=== PATIENT | male | born 2000 | race Caucasian/White ===

== ENCOUNTER → 2024-04-02 16:35 | Outpatient (CLI) | payer SELFPAY | PROVIDERS: PCP Physician Assistant Medical; Visit Provider Physician Assistant Medical | DX: R30.0 Dysuria (principal); R10.31 Right lower quadrant pain | CPT/HCPCS: 87086 ==

== ENCOUNTER → 2024-04-03 15:43 | Outpatient (CLI) | payer SELFPAY ==
[2024-04-03 20:30] LABS: Urine N gonorrhoeae NOT DETECTED
[2024-04-03 20:36] LABS: Urine Chlamydia DETECTED
== END ==
PROVIDERS: PCP Physician Assistant Medical; Visit Provider Physician Assistant Medical
DX: R30.0 Dysuria (principal); R10.31 Right lower quadrant pain
CPT/HCPCS: 87491; 87591

== ENCOUNTER → 2024-05-25 10:38 | Outpatient (CLI) | payer SELFPAY ==
[2024-05-25 22:22] LABS: Urine N gonorrhoeae NOT DETECTED
[2024-05-25 22:29] LABS: Urine Chlamydia NOT DETECTED
== END ==
PROVIDERS: PCP Physician Assistant Medical; Visit Provider Physician Assistant
DX: N50.819 Testicular pain, unspecified (principal); Z86.19 Personal history of other infectious and parasitic diseases
CPT/HCPCS: 87491; 87591

== ENCOUNTER → 2024-05-26 14:10 | Outpatient (CLI) | payer SELFPAY ==
[2024-05-26 19:05] LABS: Appearance Urine UA CLEAR; Bilirubin Urine UA NEGATIVE (NEGATIVE); Color Urine UA YELLOW; Glucose Urine UA NEGATIVE (Negative); Ketones Urine UA NEGATIVE (NEGATIVE); Leukocyte Esterase Urine UA NEGATIVE (NEGATIVE); Nitrite Urine UA NEGATIVE (Negative); Occult Blood Urine UA NEGATIVE (Negative); Protein Urine UA NEGATIVE (Negative); Specific Gravity Urine UA <=1.005 (1.000-1.035); Urobilinogen Urine UA 0.2 E.U./dL (0.2); pH Urine UA 6.5 (4.5-8.0)
[2024-05-26 19:46] LABS: Bacteria Urine None Seen; RBC Urine None Seen (0-5/HPF); Squamous Epithelial Cell Urine None Seen (0-5/HPF); Urine Volume 10mL (spun); WBC Urine None Seen (0-5/HPF)
== END ==
PROVIDERS: PCP Physician Assistant Medical; Visit Provider Physician Assistant
DX: N50.819 Testicular pain, unspecified (principal)
CPT/HCPCS: 81001

== ENCOUNTER → 2024-06-02 11:58 | Outpatient (CLI) | payer SELFPAY ==
--- NOTE | 2024-06-02 12:08 | DI.US.S_ITS ---
PROCEDURE: US SCROTUM INDICATIONS: BILATERAL TESTICULAR PAIN TECHNIQUE: Real-time scanning was performed of the scrotum and testicles, with image documentation. Color and pulse Doppler interrogation was performed of both testicles. COMPARISON: None. FINDINGS: Right: Testicle is normal in size at 4.2 x 2.9 x 2.1 cm, and homogenous in echotexture. Epididymis is normal in overall size and morphology. No hydrocele or varicoceles. Left: Testicle is normal in size at 4.3 x 3.1 x 1.7 cm, and homogeneous in echotexture. Epididymis is normal in overall size and demonstrates a 2 mm epididymal head cyst. No hydrocele or varicoceles. Doppler: There is moderate eroded lead increased vascularity seen involving the epididymis on both sides. Minimally increased vascularity is also seen involving the scrotal wall on both sides. Color and pulse Doppler demonstrate mildly to moderately increased vascular flow within both testicles. IMPRESSION: These imaging findings are most compatible with epididymo-orchitis, with generalized increased vascularity on both sides, particularly involving the epididymis, yet also involved sending the testicles and (mildly) the scrotal wall. Dictated by: Sammy Mahoney M.D. on 06/02/2024 at 12:59 Approved by: Sammy Mahoney M.D. on 06/02/2024 at 13:02
== END ==
LOC: US 12:07
PROVIDERS: PCP Physician Assistant Medical; Referring Provider Physician Assistant; Visit Provider Physician Assistant
DX: N50.811 Right testicular pain (principal); N50.812 Left testicular pain
CPT/HCPCS: 76870; 93975

== ENCOUNTER → 2024-06-03 15:25 | Outpatient (CLI) | payer SELFPAY ==
[2024-06-03 21:28] LABS: Urine N gonorrhoeae NOT DETECTED
[2024-06-03 21:33] LABS: Urine Chlamydia NOT DETECTED
== END ==
PROVIDERS: PCP Physician Assistant Medical; Visit Provider Physician Assistant Medical
DX: N45.3 Epididymo-orchitis (principal); Z86.19 Personal history of other infectious and parasitic diseases
CPT/HCPCS: 87491; 87591

== ENCOUNTER 2024-09-10 18:28 | Emergency (ER) | payer BC, SELFPAY ==
[2024-09-10 18:48] VITALS: BP 135/88; PULSE 88; RESP 12; TEMP 36.8; O2SAT 98; BMI 20.3
== END 2024-09-10 20:20 | disposition left against medical advice (07) ==
PROVIDERS: Emergency Provider Emergency Medicine; PCP Physician Assistant Medical
CPT/HCPCS: 99281

== ENCOUNTER 2024-09-11 10:43 | Emergency (ER) | payer BC, SELFPAY ==
[2024-09-11 10:56] VITALS: BP 156/74; PULSE 90; RESP 15; TEMP 37.4; O2SAT 98; BMI 20.3
--- NOTE | 2024-09-11 11:24 | ED_ITS ---
<Statement entered by David Gonzales DO - 09/11/24 17:26> Dr. Gonzales: I was immediately available in the department for consultation. I did not actually see the patient. HPI - Male Genitourinary General Chief complaint: Urogenital-Male Stated complaint: Coming back today from Yesterdays visit Time Seen by Provider: 09/11/24 11:00 Mode of arrival: Ambulatory History of Present Illness HPI Narrative: Mr. Villegas is a pleasant 24-year-old male with a past medical history of chlamydia March 2024 resulting in orchitis epididymitis who presents to the emergency department for bilateral flank pain x 5 days. Patient is with his father. Reports that around Saturday he developed bilateral flank pain throughout the day with no known injury or trigger. States that the pain is directly over both of his kidneys which is what concerned him giving his history of testicular pain. Pain is slightly worse on the right side of his flank with occasional wrapping around to the right groin. Pain is constant, not intermittent. Pain is a 5 to 7/10. He denies any urinary symptoms at this time and states that his testicular pain has gotten much better. Denies hematuria, dysuria, itching, burning. Denies abdominal pain, nausea, vomiting, fevers, chills, chest pain, shortness of breath, cough, sore throat, flu symptoms, testicular pain, testicular swelling, penile discharge. Pain is improved only slightly with ibuprofen. Pain is worsened by movement. He lives on [facility]. Related Data Home Medications Medication Instructions Recorded Confirmed No Known Home Medications 06/30/24 07/02/24 Allergies Allergy/AdvReac Type Severity Reaction Status Date / Time No Known Drug Allergies Allergy Verified 07/02/24 11:57 Review of Systems Review of Systems ROS Unobtainable: All systems reviewed & are unremarkable except as noted in HPI and below Patient History Social History Smoking Status: Never smoker Smoking Status: Never smoker Alcohol type: beer Exam Narrative Exam Narrative: GENERAL: 24 year old patient appears stated age. Well-developed patient, in no acute distress. HEAD: Atraumatic. Normocephalic. NECK: Trachea midline. Cervical ROM intact. CARDIOVASCULAR: Regular rate and rhythm. RESPIRATORY: ?Nonlabored respirations. ?Speaking in clear, full sentences. ?Clear to auscultation. Breath sounds equal bilaterally. No wheezes, rales, or rhonchi. ? GASTROINTESTINAL: Abdomen soft, non-tender, nondistended. Normal bowel sounds. EXTREMITIES: No edema or joint tenderness. BACK: Subjective pain in the mid back region over the bilateral thoracic paraspinal muscles. No CVA tenderness. Reports that right-sided pain radiates slightly to the groin. NEURO: AOx3. ?Clear speech. ?Moves all 4 extremities appropriately. SKIN: No rash or erythema of visible areas Initial Vital Signs Initial Vital Signs: Vital Signs Temperature 99.4 F 09/11/24 10:56 Pulse Rate 90 09/11/24 10:56 Respiratory Rate 15 09/11/24 10:56 Blood Pressure 156/74 H 09/11/24 10:56 Pulse Oximetry 98 09/11/24 10:56 Oxygen Delivery Method Room Air 09/11/24 10:56 Course Orders Ordered: ED Orders 09/11/24 10:53 Chlamydia Gonorrhea PCR -URINE Stat Urine Microscopic Stat 09/11/24 11:23 US renal complete Stat Complete Blood Count AUTO DIFF Stat Comprehensive Metabolic Panel Stat Lipase Stat Discontinued Medications Ketorolac Tromethamine (Ketorolac 30 Mg/Ml Vial) 15 mg IV NOW ONE Stop: 09/11/24 11:24 Last Admin: 09/11/24 12:04 Dose: 15 mg Documented By: RB Vital Signs Vital signs: Vital Signs - 8 hr 09/11/24 10:56 Temperature 99.4 F Pulse Rate 90 Respiratory Rate 15 Blood Pressure 156/74 H Pulse Oximetry 98 Oxygen Delivery Method Room Air MDM - Male Genitourinary Medical Records Attestation: I reviewed the patient's medical records. Lab Data 09/11/24 12:00 09/11/24 12:00 Labs: Lab Results 09/11/24 09/11/24 Range/Units 10:53 12:00 WBC 7.5 (4.5-11.0) X10^3/uL RBC 4.67 (4.5-5.9) X10^6/uL Hgb 15.0 (13.5-17.5) g/dL Hct 44.5 (41-53) % MCV 95.2 (80-100) fL MCH 32.0 (26-34) PG MCHC 33.6 (30-36) % RDW 13.0 (11.6-14.8) % Plt Count 279 (150-400) X10^3/uL Neut % (Auto) 58.4 (50-75) % Lymph % (Auto) 28.5 (25-40) % Bartholomew % (Auto) 11.8 (3-14) % Eos % (Auto) 0.4 L (2-4) % Baso % (Auto) 0.9 (0-2) % Neut # (Auto) 4400 (4785-1803) /uL Lymph # (Auto) 2200 (0803-0239) /uL Bartholomew # (Auto) 900 (0-900) /uL Eos # (Auto) 0 (0-450) /uL Baso # (Auto) 100 (0-100) /uL Sodium 140 (137-145) mmol/L Potassium 3.9 (3.4-5.1) mmol/L Chloride 106 (98-107) mmol/L Carbon Dioxide 25 (22-32) mmol/L BUN 7 L (9-20) mg/dL Creatinine 0.80 (0.66-1.25) mg/dL Estimated GFR > 60 (>60) mL/min BUN/Creatinine Ratio 8.8 (6-22) Glucose 100 (70-100) mg/dL Calcium 9.7 (8.4-10.2) mg/dL Total Bilirubin 0.5 (0.2-1.3) mg/dL AST 31 (17-59) IU/L ALT 27 (<50) IU/L Alkaline Phosphatase 57 (38-126) U/L Total Protein 8.5 H (6.3-8.2) g/dL Albumin 5.1 H (3.5-5.0) g/dL Globulin 3.4 (1.7-4.1) g/dL Albumin/Globulin Ratio 1.5 (1.0-2.8) Lipase 60 (23-300) U/L Urine RBC None seen (0-5/HPF) Urine WBC None seen (0-5/HPF) Ur Squamous Epith Cells None seen (0-5/HPF) Urine Bacteria None seen (None) Ur Culture Indicated? Cult not indicated Vol Urine Centrifuged 10ml (spun) Ur Chlamydia DNA (PCR) Not detected N gonorrhoeae DNA (PCR) Not detected Urine Dip Bedside Urine Glucose Negative Bedside Urine Bilirubin - Negative Bedside Urine Ketone - Negative Urine Specific [place] 1.005 Bedside Urine Occult Blood - Negative Bedside Urine pH 7.0 Bedside Urine Protein - Negative Bedside Urine Urobilinogen - Negative Bedside Urine Nitrite - Negative Bedside Urine Leukocytes - Negative Esterase Imaging Data Renal US: Radiologist's Impression: PROCEDURE: US RENAL COMPLETE INDICATIONS: BL flank pain; R radiating to groin TECHNIQUE: Real-time scanning was performed of the kidneys and bladder, with image documentation. COMPARISON: None. FINDINGS: Kidneys: Kidneys are normal in size. Right kidney measures 11.2 cm long; left kidney measures 10.5 cm long. Right renal cortical thickness is 1.3 cm; left renal cortical thickness is 1.2 cm. Renal cortical echotexture is normal. No hydronephrosis or nephrolithiasis. No suspicious solid mass lesions. Bladder: Pre-void bladder volume is 63 mL. Post-void residual is 16 mL. Pre- void images demonstrate no intraluminal masses or stones. On pre-void images, unilateral right ureteral jets are noted with color Doppler interrogation. (Of note, ureteral jets may not be detectable in up to 25% of cases due to insufficient differences in specific gravity between ureteral and bladder urine). Miscellaneous: No free pelvic fluid. IMPRESSION: No hydronephrosis or nephrolithiasis. MDM Narrative Medical decision making narrative: 24-year-old male with a past medical history of chlamydia March 2024 resulting in orchitis epididymitis who presents to the emergency department for bilateral flank pain x 5 days. Differential diagnosis includes but is not limited to paraspinal muscle strain, UTI, pyelonephritis, hydronephrosis, ureterolithiasis, nephrolithiasis, etc. On exam patient is in no acute distress, nontoxic appearing, vital signs appropriate. Physical exam is overall reassuring with mild subjective pain in the bilateral midthoracic paraspinal region but no true CVA tenderness or abdominal tenderness. After shared decision-making with the patient, we will check urinalysis, gonorrhea/Chlamydia, CBC, CMP, lipase, renal ultrasound to further evaluate for potential renal abnormality however low suspicion for stone at this time and would like to avoid CT radiation. Pain improved with Toradol. Ultrasound reveals no hydronephrosis or nephrolithiasis. Prevoid bladder volume was 63 mL, postvoid residual is 16 mL. Urinalysis negative for blood or infection. Gonorrhea/chlamydia urine test is negative. Labs reveal normal WBC count 7.5, hemoglobin 15.0 hematocrit 44.5. Sodium normal 140, potassium 3.9, BUN 7, creatinine 0.80 with a GFR greater than 60. Very slight elevation of total protein 8.5 and Albumin 5.1. At this time, most suspicious that pain may be musculoskeletal as patient has no signs of urinary tract infection, hydronephrosis or obstruction. Did discuss extensive ED return precautions with the patient and his father and recommended prompt follow up with the PCP. Patient and his father verbalized understanding of all information. Advised ibuprofen/Tylenol, rest, avoid heavy lifting. He is stable for discharge home at this time. Discharge Plan Departure Patient Disposition: Home Clinical Impression: Bilateral flank pain Instructions: DI for Flank Pain Activity Restrictions/Additional Instructions: Dear Mr. Villegas, Thank you for coming to the emergency department today. Today, we completed a work up for flank pain on both sides of your back. Sometimes, we do not always find the cause for your symptoms in one ER visit. The findings on your exam today and on your blood work and/or imaging is reassuring. Your lab work revealed no signs of systemic infection, normal kidney function, and your urine test was negative for any signs of infection or gonorrhea/chlamydia. At this time, it is not 100% certain what is causing your symptoms, but we feel you can be discharged from the emergency department. It is possible this may worsen or you may get better. Please, if you get worse or your symptoms change, return to the emergency department. Please take Ibuprofen (Motrin/Advil) or Acetaminophen (Tylenol) for pain. These are available over the counter. You may take Ibuprofen 600 mg every 8 hours with food for pain. You may also take Acetaminophen 650 mg every 4-6 hours for pain. Do not exceed 3000 mg of Tylenol a day as this can cause liver damage. Do not drink alcohol with either of these medications. Please rest, avoid heavy lifting. Please follow up with your primary care doctor within the next 2-3 days for ER follow-up. (If you do not have a PCP you can call [phone]. ?to schedule an appointment with an [facility] Primary Care Provider) IF YOU DEVELOP ANY NEW OR WORSENING SYMPTOMS, RETURN TO THE ER! Please read the attached instructions, they highlight more specific treatments and interventions for you at home. Thank you for letting me participate in your care, Elvia John PA-C Prescriptions: No Action No Known Home Medications Referrals: Loly Aguiar PA-C [Primary Care Provider] - Stand Alone Forms: Patient Portal/API/Survey
[2024-09-11 11:37] LABS: Urine Volume 10mL (spun)
[2024-09-11 11:38] LABS: Bacteria Urine None Seen; Culture Indicated Urine Cult Not Indicated; RBC Urine None Seen (0-5/HPF); Squamous Epithelial Cell Urine None Seen (0-5/HPF); WBC Urine None Seen (0-5/HPF)
[2024-09-11] MEDS: KETOROLAC 30 MG/ML VIAL 15 MG IV (12:04)
[2024-09-11 12:14] LABS: Add Manual Diff / Slide Review NO; Basophils Absolute Auto 100 /uL (0-100); Basophils Percent Auto 0.9 % (0-2); Eosinophils Absolute Auto 0 /uL (0-450); Eosinophils Percent Auto 0.4 % (2-4); Hematocrit 44.5 % (41-53); Lymphocytes Absolute Auto 2200 /uL (1100-4500); Lymphocytes Percent Auto 28.5 % (25-40); Mean Corpuscular HGB Conc 33.6 % (30-36); Mean Corpuscular Volume 95.2 fL (80-100); Monocytes Absolute Auto 900 /uL (0-900); Monocytes Percent Auto 11.8 % (3-14); Neutrophils Absolute Auto 4400 /uL (1500-7000); Neutrophils Percent Auto 58.4 % (50-75); Platelet Count 279 X10^3/uL (150-400); Red Blood Cell Count 4.67 X10^6/uL (4.5-5.9); White Blood Cell Count 7.5 X10^3/uL (4.5-11.0)
[2024-09-11 12:28] LABS: Alanine Aminotransferase 27 IU/L (<50); Alkaline Phosphatase 57 U/L (38-126); Aspartate Aminotransferase 31 IU/L (17-59); BUN Creatinine Ratio 8.8 (6-22); Bilirubin Total 0.5 mg/dL (0.2-1.3); Blood Urea Nitrogen 7 mg/dL (9-20); Calcium 9.7 mg/dL (8.4-10.2); Chloride 106 mmol/L (98-107); Estimated Glomerular Filt Rate > 60 mL/min (>60); Glucose 100 mg/dL (70-100); HEMOLYSIS < 15 (0-50); Lipase 60 U/L (23-300); Potassium 3.9 mmol/L (3.4-5.1); Sodium 140 mmol/L (137-145)
[2024-09-11 12:29] LABS: Total Protein 8.5 g/dL (6.3-8.2)
[2024-09-11 12:30] LABS: Albumin 5.1 g/dL (3.5-5.0); Albumin Globulin Ratio 1.5 (1.0-2.8); Carbon Dioxide 25 mmol/L (22-32); Globulin 3.4 g/dL (1.7-4.1)
[2024-09-11 13:03] LABS: Urine N gonorrhoeae NOT DETECTED
[2024-09-11 13:05] LABS: Urine Chlamydia NOT DETECTED
[2024-09-11 13:34] VITALS: BP 130/80; PULSE 79; RESP 14; O2SAT 98
== END 2024-09-11 13:42 | disposition home or self-care (01) ==
PROVIDERS: Emergency Provider Physician Assistant; PCP Physician Assistant Medical
DX: R10.9 Unspecified abdominal pain (principal); Z86.19 Personal history of other infectious and parasitic diseases
CPT/HCPCS: 36415; 76770; 80053; 81003; 81015; 83690; 85025; 87491; 87591; 96374; 99284; J1885

== ENCOUNTER → 2024-11-06 08:45 | Outpatient (CLI) | payer BC, SELFPAY ==
[2024-11-06 19:40] LABS: Add Manual Diff / Slide Review NO; Basophils Absolute Auto 0 /uL (0-100); Basophils Percent Auto 0.8 % (0-2); Eosinophils Absolute Auto 100 /uL (0-450); Eosinophils Percent Auto 2.3 % (2-4); Hematocrit 45.7 % (41-53); Hemoglobin 15.4 g/dL (13.5-17.5); Lymphocytes Absolute Auto 2600 /uL (1100-4500); Lymphocytes Percent Auto 41.8 % (25-40); Mean Corpuscular HGB Conc 33.8 % (30-36); Mean Corpuscular Hemoglobin 32.2 PG (26-34); Mean Corpuscular Volume 95.4 fL (80-100); Monocytes Absolute Auto 700 /uL (0-900); Neutrophils Absolute Auto 2700 /uL (1500-7000); Neutrophils Percent Auto 43.1 % (50-75); Platelet Count 219 X10^3/uL (150-400); Red Blood Cell Count 4.79 X10^6/uL (4.5-5.9); Red Cell Distribution Width 13.5 % (11.6-14.8); White Blood Cell Count 6.2 X10^3/uL (4.5-11.0)
[2024-11-06 19:46] LABS: Erythrocyte Sedimentation Rate 1 MM/HR (0-15)
[2024-11-06 19:51] LABS: Alanine Aminotransferase 29 IU/L (<50); Albumin 5.4 g/dL (3.5-5.0); Albumin Globulin Ratio 1.7 (1.0-2.8); Alkaline Phosphatase 61 U/L (38-126); Aspartate Aminotransferase 37 IU/L (17-59); BUN Creatinine Ratio 10.3 (6-22); Bilirubin Total 1.1 mg/dL (0.2-1.3); Blood Urea Nitrogen 9 mg/dL (9-20); C-Reactive Protein Quant < 0.5 mg/dL (<1.0); Calcium 10.5 mg/dL (8.4-10.2); Carbon Dioxide 21 mmol/L (22-32); Chloride 105 mmol/L (98-107); Cholesterol 233 mg/dL (140-199); Estimated Glomerular Filt Rate > 60 mL/min (>60); Globulin 3.2 g/dL (1.7-4.1); Glucose 100 mg/dL (70-100); HDL Cholesterol 83 mg/dL (40-60); HEMOLYSIS 25 (0-50); LDL Cholesterol Calculated 126 mg/dL (<100); Potassium 4.3 mmol/L (3.4-5.1); Sodium 139 mmol/L (137-145); Total Protein 8.6 g/dL (6.3-8.2); Triglycerides 120 mg/dL (35-150)
[2024-11-06 20:18] LABS: TSH w/ Reflex to FT4 2.99 uIU/mL (0.47-4.68)
== END ==
PROVIDERS: PCP Physician Assistant Medical; Visit Provider Physician Assistant Medical
DX: R07.9 Chest pain, unspecified (principal)
CPT/HCPCS: 80053; 80061; 84443; 85025; 85651; 86140

== ENCOUNTER → 2024-11-17 15:23 | Outpatient (CLI) | payer BC, SELFPAY ==
--- NOTE | 2024-11-18 07:52 | DI.NM.S_ITS ---
DATE OF SERVICE: 11/17/2024 EXERCISE TREADMILL STRESS TEST REPORT PROCEDURE: Exercise treadmill stress test without imaging. ORDERING PROVIDER: Loly Aguiar PA-C INDICATIONS: The patient is a 24-year-old male with recent atypical, stabbing chest discomfort and lightheadedness. FINDINGS: 1. The patient was able to exercise for 11 minutes 26 seconds on a standard [place] protocol suggesting moderately reduced exercise capacity with an KYLER of +24%, achieving 12.1 METs. 2. His resting heart rate was 109 bpm with an appropriate increase to 191 bpm (97% of his predicted maximum). His resting blood pressure was 126/102 with an appropriate increase to 173/100. 3. He had no chest discomfort or other anginal symptoms. 4. His resting ECG shows sinus rhythm at 98 to [address] segments. There are no significant ST-segment shifts or arrhythmias with stress. IMPRESSION: 1. Normal exercise treadmill stress test for ischemia. 2. Moderately reduced exercise capacity without angina. 3. Borderline resting sinus tachycardia and diastolic hypertension, but an appropriate heart rate and blood pressure response to exercise. 4. No arrhythmias. Ron Villegas - RS/fn/DC doc#: [id number]/job#: [id number] dd: 11/17/2024 17:39:00 dt: 11/17/2024 17:55:00 DICTATING /COPIES TO: João Mena MD; Loly Aguiar PA-C COPIES MNE: VALENTE;
== END ==
PROVIDERS: PCP Physician Assistant Medical; Referring Provider Physician Assistant Medical; Visit Provider Physician Assistant Medical
DX: R42 Dizziness and giddiness (principal); R07.89 Other chest pain
CPT/HCPCS: 93017

== ENCOUNTER → 2024-11-25 15:00 | Outpatient (CLI) | payer BC, SELFPAY ==
--- NOTE | 2024-11-25 15:01 | DI.ECHO.S_ITS ---
[facility]+ [facility] : : [address] : : [place] : : [id number] : : Phone: [phone] Echocardiogram Report + + :Name: SPIKE VEGA Study Date: 11/25/2024 Height: 72 in : :Hospital ReadingLocation: Weight: 150 lb : : Gender: Male BSA: 1.9 m2 : :: 2000 Age: 24 yrs BP: 144/91 mmHg: :Reason For Study: CHEST PAIN : :Ordering Physician: SHEREEN, : :ANGELICA Performed By: Sheldon Hoyt : :Referring: ANGELICA REGAN : + + Interpretation Summary The ejection fraction is estimated to be 50-55%. Diastolic parameters suggest probable normal left ventricular diastolic function and normal filling pressures. No valvular abnormalities. Pulmonary artery pressures cannot be estimated because of the lack of a measurable TR jet velocity but the IVC suggests a CVP of around 3 mmHg. Procedure: A two-dimensional transthoracic echocardiogram with color flow and Doppler was performed. The study quality was technically adequate. There is no prior echocardiogram noted for this patient. The patient was in normal sinus rhythm during the exam. Left Ventricle: The left ventricle is normal in size. There is normal left ventricular wall thickness. There is no ventricular septal defect visualized. The ejection fraction is estimated to be 50-55%. There are no focal wall motion abnormalities. Diastolic parameters suggest probable normal left ventricular diastolic function and normal filling pressures. Right Ventricle: The right ventricle is normal in size and function. Atria: The left atrial size is normal. Right atrial size is normal. There is no Doppler evidence for an interatrial shunt. Mitral Valve: The mitral valve leaflets appear normal. There is no evidence of stenosis, fluttering, or prolapse. There is no mitral regurgitation noted. Aortic Valve: The aortic valve is trileaflet. The aortic valve opens well. There is no aortic valve stenosis. No aortic regurgitation is present. Tricuspid Valve: The tricuspid valve leaflets are thin and pliable. No tricuspid regurgitation. Pulmonary artery pressures cannot be estimated because of the lack of a measurable TR jet velocity but the IVC suggests a CVP of around 3 mmHg. Pulmonic Valve: The pulmonic valve leaflets are thin and pliable; valve motion is normal. There is trace pulmonic regurgitation. Great Vessels: The aortic root is normal size. The dimensions of the ascending aorta are normal. The pulmonary artery is normal size. The IVC is of normal diameter and collapses greater than 50% with a sniff. This suggests a low right atrial pressure of 3 mm Hg. Pericardium/ Pleura There is no pericardial effusion. There is no pleural effusion. MMode/2D Measurements & Calculations LVIDd: 5.0 cm LVOT diam: 2.2 cm LVIDs: 3.8 cm Ao root diam: 3.1 cm FS: 23.8 % EPSS: 0.71 cm IVSd: 0.94 cm LVPWd: 0.84 cm LV love. diameter/BSA (cm/m^2): 2.7 LV sys. diameter/BSA (cm/m^2): 2.0 LA A2 area: 13.6 cm2 RA long axis: 3.5 cm LA A4 area: 15.6 cm2 RA area: 8.6 cm2 LA length (vol): 4.5 cm RA vol: 18.1 ml LA vol: 39.8 ml RA : 9.6 ml/m2 LA vol index: 21.1 ml/m2 IVC diam: 1.6 cm RVD1 (basal): 4.3 cm RVD2 (mid): 3.5 cm TAPSE: 1.8 cm Doppler Measurements & Calculations Ao V2 max: 109.3 cm/sec LVOT Max Philipp: 87.4 cm/sec Ao V2 mean: 81.1 cm/sec LV V1 max P.1 mmHg Ao max P.8 mmHg LV V1 VTI: 15.5 cm Ao mean P.9 mmHg GARRETT(I,D): 3.0 cm2 Ao V2 VTI: 19.4 cm GARRETT(V,D): 3.0 cm2 sev ratio: 0.80 GARRETT indexed to BSA (cm^2/m^2): 1.6 MV E max philipp: 59.6 cm/sec PA V2 max: 88.7 cm/sec MV A max philipp: 39.8 cm/sec PA V2 mean: 65.3 cm/sec MV E/A: 1.5 PA mean P.9 mmHg Med Peak E' Philipp: 13.4 cm/sec PA pr(Accel): 13.9 mmHg E/E' med: 4.5 Lat Peak E' Philipp: 11.0 cm/sec E/E' lat: 5.4 E/e' average: 4.9 MV dec time: 0.17 sec SV(LVOT): 58.1 ml Reading Physician:04:48 PM
== END ==
PROVIDERS: PCP Physician Assistant Medical; Referring Provider Physician Assistant Medical; Visit Provider Physician Assistant Medical
DX: R07.9 Chest pain, unspecified (principal); R42 Dizziness and giddiness
CPT/HCPCS: 93306

== ENCOUNTER → 2025-01-26 15:15 | Outpatient (CLI) | payer BC, SELFPAY ==
[2025-01-26 21:22] LABS: Urine N gonorrhoeae NOT DETECTED
[2025-01-26 21:36] LABS: Urine Chlamydia NOT DETECTED
== END ==
LOC: LAB 15:27
PROVIDERS: PCP Physician Assistant Medical; Visit Provider Physician Assistant Medical
DX: Z20.2 Contact with and (suspected) exposure to infections with a predominantly sexual mode of transmission (principal)
CPT/HCPCS: 87491; 87591

== ENCOUNTER → 2025-02-02 13:06 | Outpatient (CLI) | payer BC, SELFPAY ==
[2025-02-02 19:27] LABS: Alanine Aminotransferase 25 IU/L (<50); Albumin 4.9 g/dL (3.5-5.0); Albumin Globulin Ratio 1.6 (1.0-2.8); Alkaline Phosphatase 55 U/L (38-126); Aspartate Aminotransferase 35 IU/L (17-59); BUN Creatinine Ratio 15.1 (6-22); Blood Urea Nitrogen 14 mg/dL (9-20); Calcium 10.1 mg/dL (8.4-10.2); Carbon Dioxide 29 mmol/L (22-32); Chloride 99 mmol/L (98-107); Estimated Glomerular Filt Rate > 60 mL/min (>60); Glucose 107 mg/dL (70-99); HEMOLYSIS < 15 (0-50); Potassium 4.1 mmol/L (3.4-5.1); Sodium 137 mmol/L (137-145); Total Protein 7.9 g/dL (6.3-8.2)
== END ==
PROVIDERS: PCP Physician Assistant Medical; Visit Provider Physician Assistant Medical
DX: R07.9 Chest pain, unspecified (principal); E83.52 Hypercalcemia
CPT/HCPCS: 80053; 82310; 83970

== ENCOUNTER → 2025-03-04 13:03 | Outpatient (CLI) | payer BC, SELFPAY ==
[2025-03-04 20:39] LABS: HIV 1 & 2 Ab/Ag 4th Gen Combo NEGATIVE (NEGATIVE)
== END ==
PROVIDERS: PCP Physician Assistant Medical; Visit Provider Family Medicine
DX: A64 Unspecified sexually transmitted disease (principal)
CPT/HCPCS: 86592; 87389

== ENCOUNTER → 2025-06-17 08:55 | Outpatient (CLI) | payer BC, SELFPAY ==
[2025-06-17 19:17] LABS: Alanine Aminotransferase 28 IU/L (<50); Albumin 4.5 g/dL (3.5-5.0); Albumin Globulin Ratio 1.6 (1.0-2.8); Alkaline Phosphatase 60 U/L (38-126); Blood Urea Nitrogen 14 mg/dL (9-20); Calcium 9.7 mg/dL (8.4-10.2); Carbon Dioxide 28 mmol/L (22-32); Chloride 102 mmol/L (98-107); Cholesterol 216 mg/dL (140-199); Estimated Glomerular Filt Rate > 60 mL/min (>60); Globulin 2.8 g/dL (1.7-4.1); Glucose 97 mg/dL (70-99); HDL Cholesterol 84 mg/dL (40-60); HEMOLYSIS < 15 (0-50); Potassium 4.7 mmol/L (3.4-5.1); Sodium 137 mmol/L (137-145); Total Protein 7.3 g/dL (6.3-8.2); Triglycerides 131 mg/dL (35-150)
== END ==
PROVIDERS: PCP Physician Assistant Medical; Visit Provider Physician Assistant Medical
DX: E83.52 Hypercalcemia (principal); I10 Essential (primary) hypertension
CPT/HCPCS: 80053; 80061